=== PATIENT | male | born 1975 | race Caucasian/White ===

== ENCOUNTER 2017-01-03 10:28 | Emergency (ER) | payer OTHER ==
[~2017-01-03] VITALS: Ht 185.4 cm; Wt 86.2 kg
[2017-01-03] MEDS ORDERED: VENTOLIN HFA18 GM IH (12:20)
[2017-01-03] MEDS ORDERED: PREDNISONE50 MG PO (12:20)
[2017-01-03] MEDS ORDERED: ZOFRAN ODT4 MG PO (12:20)
[2017-01-03] MEDS ORDERED: NAPROSYN500 MG PO (12:27)
[2017-01-03] MEDS ORDERED: LORTAB 5-325 M1 EACH PO (12:27)
[2017-01-03 12:57] VITALS: BP 123/67
== END 2017-01-03 12:58 | disposition home or self-care (01) ==
LOC: EME 10:28
DX: R07.81 Pleurodynia (principal)
CPT/HCPCS: 71020; 99281; 99284